=== PATIENT | female | born 1965 | race African-American/Black ===

== ENCOUNTER 2024-08-18 15:26 | Emergency (ER) | payer BC ==
[2024-08-18] MEDS ORDERED: Ketorolac Tromethamine 30 MG (1 mL) VIAL ONE ×2 (16:03→16:08)
== END 2024-08-18 18:05 | disposition home or self-care (01) ==
LOC: CSHERS 15:26
DX: S30.1XXA Contusion of abdominal wall, initial encounter (principal); I10 Essential (primary) hypertension; Y04.0XXA Assault by unarmed brawl or fight, initial encounter; Z79.899 Other long term (current) drug therapy
CPT/HCPCS: 71250; 96372; J1885

== ENCOUNTER 2024-09-02 10:53 | Outpatient (CLI) | payer BC | END 2024-09-02 10:54 | disposition home or self-care (01) | LOC: CSHULT 10:53 | PROVIDERS: ATTEND Internal Medicine | DX: R16.0 Hepatomegaly, not elsewhere classified (principal); N28.1 Cyst of kidney, acquired | CPT/HCPCS: 76705 ==

== ENCOUNTER 2025-08-11 14:02 | Outpatient (CLI) | payer OTHER | END 2025-08-11 14:03 | disposition home or self-care (01) | LOC: CSHMAMMO 14:02 | PROVIDERS: ATTEND Family Medicine | DX: Z12.31 Encounter for screening mammogram for malignant neoplasm of breast (principal); Z80.3 Family history of malignant neoplasm of breast | CPT/HCPCS: 77063; 77067 ==